=== PATIENT | male | born 1975 | race Asian ===

== ENCOUNTER 2019-01-15 04:07 | Emergency (ER) | payer OTHER ==
[~2019-01-15] VITALS: Ht 175.3 cm; Wt 70.3 kg
[2019-01-15 04:19] VITALS: Ht 175.3 cm; Wt 70.3 kg
[2019-01-15 05:29] LABS: BASOPHIL % 0.2 % (0-2); PLATELET COUNT 201 x10^3mcL (130-400); RED CELL DISTRIBUTION WIDTH 12.1 % (11.5-14.5)
[2019-01-15 05:40] LABS: CALCIUM 9.5 mg/dL (8.5-10.1); CARBON DIOXIDE 22.5 mmol/L (21-32); CHLORIDE SERUM 103 mmol/L (98-107); CREATININE SERUM 1.3 mg/dL (0.7-1.3); GFR1 > 60 mL/min; GLUCOSE SERUM 146 mg/dL (74-106); POTASSIUM SERUM 3.3 mmol/L (3.5-5.1); SODIUM SERUM 139 mmol/L (136-145)
[2019-01-15 05:44] LABS: ALBUMIN 4.2 g/dL (3.4-5.0); ALKALINE PHOSPHATASE 66 U/L (46-116); ALT/SGPT 24 U/L (16-63); AST/SGOT 17 U/L (15-37); BILIRUBIN TOTAL 0.36 mg/dL (0.20-1.00); TOTAL PROTEIN, SERUM 7.5 g/dL (6.4-8.2); URIC ACID 6.7 mg/dL (3.5-7.2)
[2019-01-15 07:19] LABS: microscopic required? YES; urine erythrocyte 3+ (NEGATIVE)
[2019-01-15 17:19] VITALS: BP 117/63
== END 2019-01-15 17:19 | disposition short-term general hospital (02) ==
LOC: ED 04:07
PROVIDERS: Emergency Medicine
DX: N13.2 Hydronephrosis with renal and ureteral calculous obstruction (principal)
CPT/HCPCS: J0696; J1885; J2270; J2405; J7030

== ENCOUNTER 2020-05-25 11:43 | Emergency (ER) | payer OTHER ==
[~2020-05-25] VITALS: Ht 172.7 cm; Wt 69.4 kg
[2020-05-25 12:12] VITALS: Ht 172.7 cm; Wt 69.4 kg
[2020-05-25 15:17] LABS: BASOPHIL % 0.4 % (0-2); PLATELET COUNT 228 x10^3mcL (130-400); RED CELL DISTRIBUTION WIDTH 12.6 % (11.5-14.5)
[2020-05-25 15:26] LABS: CALCIUM 8.9 mg/dL (8.5-10.1); CARBON DIOXIDE 29.8 mmol/L (21-32); CHLORIDE SERUM 104 mmol/L (98-107); CREATININE SERUM 0.9 mg/dL (0.7-1.3); GFR1 > 60 mL/min; GLUCOSE SERUM 99 mg/dL (74-106); POTASSIUM SERUM 4.6 mmol/L (3.5-5.1); SODIUM SERUM 140 mmol/L (136-145)
[2020-05-25 15:30] LABS: ALBUMIN 4.1 g/dL (3.4-5.0); ALKALINE PHOSPHATASE 106 U/L (46-116); ALT/SGPT 25 U/L (16-63); AST/SGOT 17 U/L (15-37); BILIRUBIN TOTAL 0.47 mg/dL (0.20-1.00); TOTAL PROTEIN, SERUM 8.1 g/dL (6.4-8.2)
[2020-05-25 16:39] VITALS: BP 113/65
== END 2020-05-25 17:54 | disposition home or self-care (01) ==
LOC: ED 11:43
PROVIDERS: Specialist
DX: R13.10 Dysphagia, unspecified (principal); J02.9 Acute pharyngitis, unspecified; Z20.828 Contact with and (suspected) exposure to other viral communicable diseases
CPT/HCPCS: 86308; 87804; J1885; J3010; J7030; Q9967; U0003